=== PATIENT | male | born 1990 | race African-American/Black ===

== ENCOUNTER 2017-12-23 22:58 | Emergency (ER) | payer SELFPAY ==
[~2017-12-23] VITALS: Ht 182.9 cm; Wt 72.3 kg
[2017-12-23 23:44] LABS: HEMATOCRIT 38.1 % (38.0-50.0); HEMOGLOBIN 12.9 G/DL (12.5-16.6); MCH 29.3 PG (29.0-34.0); MCHC 33.9 G/DL (30.0-36.0); MCV 86.6 FL (86-99); PLATELET COUNT 183 K/uL (156-360); RBC DIS.WIDTH-CV 13.4 % (11.8-14.6); RBC DIS.WIDTH-SD 42.8 % (39-53); WHITE BLOOD COUNT 12.4 K/uL (4.1-10.2)
[2017-12-23 23:57] LABS: CHLORIDE 105 mEq/L (99-109); POTASSIUM 3.5 mEq/L (3.7-5.4); SODIUM 140 mEq/L (136-147)
[2017-12-23 23:58] LABS: GLUCOSE 127 mg/dL (70-99)
[2017-12-24 00:02] LABS: CREATININE 0.9 mg/dL (0.6-1.3); SERUM ETHYL ALCOHOL < 10 mg/dL
[2017-12-24 00:04] LABS: UREA NITROGEN (BUN) 13 mg/dL (9-23)
[2017-12-24 00:05] LABS: SALICYLATE < 5.0 MG/DL (15-30)
[2017-12-24 00:06] LABS: ACETAMINOPHEN (TYLENOL) < 10 mcg/mL (10-30)
[2017-12-24 00:10] LABS: GFR ESTIMATE (CALCULATED) > 59 mL/min/ (58.99-99999)
[2017-12-24] MEDS ORDERED: IMODIUM A-D2 M2 PO (01:42)
[2017-12-24] MEDS ORDERED: CLONIDINE HCL0.1 MG PO (01:42)
[2017-12-24] MEDS ORDERED: TRAZODONE HCL50 MG PO (01:42)
[2017-12-24 02:07] VITALS: BP 163/102
== END 2017-12-24 02:13 | disposition home or self-care (01) ==
LOC: EME 22:58
PROVIDERS: Emergency Medicine
DX: F11.23 Opioid dependence with withdrawal (principal); F32.9 Major depressive disorder, single episode, unspecified; R11.2 Nausea with vomiting, unspecified; R19.7 Diarrhea, unspecified
CPT/HCPCS: 80048; 81003; 85027; 90839; G0480; J1630; J2550

== ENCOUNTER 2017-12-25 13:03 | Emergency (ER) | payer OTHER ==
[~2017-12-25] VITALS: Ht 182.9 cm; Wt 73.3 kg
[~2017-12-25 13:03] MED LIST: CLONIDINE HCL0.1 MG PO; IMODIUM A-D2 M2 PO; TRAZODONE HCL50 MG PO
[2017-12-25 13:45] VITALS: BP 150/90
== END 2017-12-25 13:46 | disposition home or self-care (01) ==
LOC: EME 13:03
DX: F11.23 Opioid dependence with withdrawal (principal); F60.89 Other specific personality disorders
CPT/HCPCS: 99281; 99284; J1630